=== PATIENT | female | born 1985 | race Two or more races ===

== ENCOUNTER 2021-02-02 15:50 | Emergency (ER) | payer OTHER ==
[~2021-02-02] VITALS: Ht 157.5 cm; Wt 61.4 kg
[2021-02-02] MEDS ORDERED: SODIUM CHLORIDE 0.9% 100 ML ONE (16:27)
[2021-02-02] MEDS ORDERED: IOHEXOL 350 MG/ML 75 ML VIAL ONE (16:27)
[2021-02-02] MEDS ORDERED: ONDANSETRON HCL 4 MG/2 ML VIAL IVP ONE (16:30)
[2021-02-02] MEDS ORDERED: SODIUM CHLORIDE 0.9% 1,000 ML IV ONE (16:30)
[2021-02-02 17:07] LABS: BASOPHILS % (AUTO) 1.1 % (0.0-2.0); EOSINOPHILS % (AUTO) 1.4 % (1.0-6.0); HEMATOCRIT 42.4 % (36-46); HEMOGLOBIN 14.1 g/dL (12.0-16.0); LYMPHOCYTES # (AUTO) 3.4 K/uL (1.0-4.8); LYMPHOCYTES % (AUTO) 32.6 % (22.0-44.0); MEAN CORPUSCULAR HEMOGLOBIN 30.3 pg (26.0-34.0); MEAN CORPUSCULAR HGB CONC 33.2 G/dL (31.0-37.0); MEAN CORPUSCULAR VOLUME 91 fL (80-100); MONOCYTES # (AUTO) 0.7 K/uL (0.1-1.0); MONOCYTES % (AUTO) 6.7 % (2.0-9.0); NEUTROPHILS # (AUTO) 6.1 K/uL (1.8-7.7); NEUTROPHILS % (AUTO) 58.2 % (40.0-70.0); PLATELET COUNT (AUTO) 352 K/uL (150-450); RED BLOOD CELL COUNT(AUTO) 4.65 MIL/uL (4.00-5.20)
[2021-02-02 17:27] LABS: ALBUMIN 4.1 g/dL (3.4-5.0); ALKALINE PHOSPHATASE 74 U/L (46-116); ASPARTATE AMINOTRANSFERASE 11 U/L (15-37); BILIRUBIN,TOTAL 0.3 mg/dL (0.1-1.0); CALCIUM, TOTAL 9.1 mg/dL (8.8-10.5); CARBON DIOXIDE 24 mmol/L (22-29); CREATINE KINASE, TOTAL ONLY 30 U/L (26-192); CREATININE 0.73 mg/dL (0.60-1.30); GLOMERULAR FILTR. RATE CALC > 60 mL/min (>60); GLUCOSE,RANDOM 100 mg/dL (70-110); PHOSPHORUS 3.2 mg/dL (2.5-4.9); TOTAL PROTEIN, SERUM 7.6 g/dL (6.4-8.2); UREA NITROGEN, BLOOD 9 mg/dL (7-18)
[2021-02-02 17:31] LABS: B-TYPE NATRIURETIC PEPTIDE 5 pg/mL (0-100)
[2021-02-02 17:36] LABS: ALANINE AMINOTRANSFERASE 22 U/L (12-78); ANION GAP 14 mmol/L (8-16); CHLORIDE 103 mmol/L (98-107); POTASSIUM 3.7 mmol/L (3.5-5.1); SODIUM SERUM 141 mmol/L (136-145)
[2021-02-02 17:52] LABS: D-DIMER 0.19 mg/L FEU (0.00-0.50); PROTHROMBIN TIME 10.6 SEC (9.4-11.6)
[2021-02-02 18:03] LABS: HCG,QUANTITATIVE 1 mIU/mL (0-6)
[2021-02-02 19:27] VITALS: BP 125/68
== END 2021-02-02 19:37 | disposition home or self-care (01) ==
LOC: EMS 15:50
DX: R00.2 Palpitations (principal); R07.89 Other chest pain; R11.0 Nausea
CPT/HCPCS: 36415; 71275; 80053; 82550; 83735; 83880; 84100; 84484; 84702; 85025; 85379; 85610; 85730; 93005; 96361; 96374; 99285; J2405; J7030; J7050; Q9967